=== PATIENT | female | born 1970 | race American Indian/Alaskan Native ===

== ENCOUNTER 2017-10-11 15:46 | Emergency (ER) | payer OTHER ==
[2017-10-11 18:36] LABS: Basophils # (Auto) 0.1 K/mm3 (0.0-0.1); Basophils % (Auto) 0.8 % (0.0-1.8); Eosinophils # (Auto) 0.1 K/mm3 (0.0-0.4); Eosinophils % (Auto) 1.6 % (0.0-4.3); Hematocrit 39.6 % (30.3-42.9); Hemoglobin 13.4 gm/dl (10.1-14.3); Lymphocytes # (Auto) 2.5 K/mm3 (1.2-5.4); Lymphocytes % (Auto) 29.3 % (13.4-35.0); Mean Corpuscular HGB Conc 34 % (30-34); Mean Corpuscular Hemoglobin 29 pg (28-32); Mean Corpuscular Volume 86 fl (79-97); Monocytes # (Auto) 0.6 K/mm3 (0.0-0.8); Monocytes % (Auto) 6.9 % (0.0-7.3); Platelet Count 307 K/mm3 (140-440); Red Blood Count 4.63 M/mm3 (3.65-5.03); Red Cell Distribution Width 15.3 % (13.2-15.2)
[2017-10-11 18:55] LABS: Alanine Aminotransferase 12 units/L (7-56); Albumin 4.3 g/dL (3.9-5); BUN/Creatinine Ratio 18; Blood Urea Nitrogen 11 mg/dL (7-17); Calcium 9.2 mg/dL (8.4-10.2); Hemolysis Index 11
[2017-10-11 19:46] LABS: Bilirubin,Urine NEG (Negative); Blood,Urine NEG (Negative); Color,Urine Yellow (Yellow); Hyaline Casts,Urine 1 /LPF; Mucus,Urine FEW /HPF; Nitrite,Urine NEG (Negative); Protein,Urine <15 mg/dL mg/dL (Negative)
[2017-10-12] MEDS ORDERED: COMPAZINE IV ONE (02:42)
[2017-10-12] MEDS ORDERED: TORADOL IV ONE (02:42)
[2017-10-12] MEDS ORDERED: BENADRYL IV ONE (02:42)
--- NOTE | 2017-10-12 02:54 | Emergency Department Report ---
ED Headache HPI - General Chief Complaint: Headache Stated Complaint: MIGRAINES/LEG CRAMPS/STOMACH Time Seen by Provider: 10/12/17 02:41 Source: patient, family (SON) Exam Limitations: no limitations - History of Present Illness Initial Comments: 47 YO FEMALE WITH H/O MIGRAINE PANTOJA HER WITH THE SAME. SHE HAS A FRONTAL MIGRAINE THAT IS CAUSING PAIN AT THE BACK OF HER HEAD AND MAKING HER FEEL CRAMPS IN HER LEGS. THIS IS SIMILAR TO ALL HER OTHER MIGRAINE HEADACHES. DENIES FEVER, CHILLS, NAUSEA,VOMITING . NOSE BLEEDS FOR 3 DAYS AGO. SHE ALSO HAS A H/O MS ALONG WITH THE CHRONIC MIGRAINES. SHE FELT NAUSEATED AND VOMITED 2 TIMES MONDAY. Allergies/Adverse Reactions: Allergies Iodine and Iodide Containing Produc Allergy (Verified 07/05/16 01:50) Anaphylaxis mustard Allergy (Uncoded 07/05/16 01:50) Hives seafood Allergy (Uncoded 07/05/16 01:50) Anaphylaxis Home Medications: Ambulatory Orders Botox 200 units SUB-Q Q12W 07/05/16 Cephalexin [Keflex] 500 mg PO Q12HR #14 cap 07/05/16 Cyclobenzaprine [Flexeril 10 MG TAB] 10 mg PO TID PRN 07/05/16 Dimethyl Fumarate [Tecfidera] 240 mg PO BID 07/05/16 HYDROcodone/APAP 5-325 [Verona 5-325 mg TAB] 2 each PO Q6HR PRN #20 tablet ED Review of Systems ROS: Stated complaint: MIGRAINES/LEG CRAMPS/STOMACH Other details as noted in HPI Constitutional: denies: chills, fever Eyes: denies: eye pain, eye discharge, vision change ENT: denies: ear pain, throat pain Respiratory: denies: cough, shortness of breath, wheezing Cardiovascular: denies: chest pain, palpitations Endocrine: no symptoms reported Gastrointestinal: abdominal pain, nausea. denies: diarrhea Genitourinary: denies: urgency, dysuria, discharge Musculoskeletal: other (LEG CRAMPS). denies: back pain, joint swelling Skin: denies: rash, lesions Neurological: denies: headache, weakness, paresthesias Psychiatric: denies: anxiety, depression Hematological/Lymphatic: denies: easy bleeding, easy bruising ED Past Medical Hx - Past Medical History Previous Medical History?: Yes Hx Headaches / Migraines: Yes Additional medical history: MS, Gallstones - Surgical History Past Surgical History?: Yes Additional Surgical History: tubaligation - Social History Smoking Status: Never Smoker Substance Use Type: Prescribed - Medications Home Medications: Home Medications Medication Instructions Recorded Confirmed Last Taken Type Botox 200 units SUB-Q Q12W 07/05/16 07/05/16 03/21/16 History Cephalexin [Keflex] 500 mg PO Q12HR #14 cap 07/05/16 Unknown Rx Cyclobenzaprine [Flexeril 10 MG 10 mg PO TID PRN 07/05/16 07/05/16 Unknown History TAB] Dimethyl Fumarate [Tecfidera] 240 mg PO BID 07/05/16 07/05/16 07/05/16 History HYDROcodone/APAP 5-325 [Ver[place] 2 each PO Q6HR PRN #20 tablet 10/12/17 Unknown Rx 5-325 mg TAB] ED Physical Exam - General Limitations: No Limitations General appearance: alert, in no apparent distress - Head Head exam: Present: atraumatic, normocephalic - Eye Eye exam: Present: normal appearance, EOMI - ENT ENT exam: Present: mucous membranes moist, other - Neck Neck exam: Present: normal inspection, full ROM. Absent: tenderness (NO TENDERNESS IN BACK, NO STIFFNESS) - Respiratory Respiratory exam: Present: normal lung sounds bilaterally. Absent: respiratory distress, wheezes, rales, rhonchi - Cardiovascular Cardiovascular Exam: Present: regular rate, normal rhythm. Absent: systolic murmur, diastolic murmur, rubs, gallop - GI/Abdominal GI/Abdominal exam: Present: soft, normal bowel sounds, other (LARGE CENTRIPITAL FAT, NO ABDOMINAL PAIN). Absent: distended, tenderness, guarding, rebound - Rectal Rectal exam: Present: deferred - Extremities Exam Extremities exam: Present: normal inspection, full ROM - Back Exam Back exam: Present: normal inspection, full ROM - Neurological Exam Neurological exam: Present: alert, oriented X3, CN II-XII intact - Psychiatric Psychiatric exam: Present: normal affect, normal mood - Skin Skin exam: Present: warm, dry, intact, normal color. Absent: rash ED Course Vital Signs 10/11/17 10/12/17 10/12/17 18:07 01:18 01:19 Temperature 98.8 F 98.4 F Pulse Rate 92 H 95 H Respiratory 20 18 18 Rate Blood Pressure 175/104 Blood Pressure 170/99 [Left] O2 Sat by Pulse 99 98 98 Oximetry ED Medical Decision Making - Lab Data Result diagrams: 10/11/17 18:20 10/11/17 18:20 - Medical Decision Making TYPICAL MIGRAINE FOR THE PATIENT, WILL D/C HER TO FOLLOW UP WITH HER DOCTOR Critical care attestation.: If time is entered above; I have spent that time in minutes in the direct care of this critically ill patient, excluding procedure time. ED Disposition Clinical Impression: Migraine Qualifiers: Migraine type: unspecified Status migrainosus presence: without status migrainosus Intractability: intractable Qualified Code(s): G43.919 - Migraine, unspecified, intractable, without status migrainosus Disposition: TO HOME OR SELFCARE Is pt being admited?: No Does the pt Need Aspirin: No Condition: Stable Instructions: Acute Headache (ED) Additional Instructions: PLEASE FOLLOW UP WITH YOUR DOCTOR IN 2 DAYS. RETURN TO THE ER IF YOUR SYMPTOMS WORSEN, OR NEW SYMPTOMS OR FOR ANY Prescriptions: HYDROcodone/APAP 5-325 [Verona 5-325 mg TAB] 2 each PO Q6HR PRN #20 tablet PRN Reason: Pain Referrals: PRIMARY CARE, [Referring] - 3-5 Days [facility] [Outside] - 3-5 Days [facility] [Outside] - 3-5 Days Time of Disposition: 05:03
[2017-10-12] MEDS ORDERED: NACL 0.9% 50 ML ONE (03:12)
[2017-10-12 05:25] VITALS: BP 119/67
== END 2017-10-12 05:25 | disposition home or self-care (01) ==
LOC: ED 15:46
DX: G43.919 Migraine, unspecified, intractable, without status migrainosus (principal); Z91.013 Allergy to seafood; Z91.018 Allergy to other foods; Z91.048 Other nonmedicinal substance allergy status
CPT/HCPCS: 36415; 80053; 81001; 85025; 96374; 96375; 99283; J0780; J1200; J1885